=== PATIENT | female | born 1965 | race Caucasian/White ===

== ENCOUNTER 2020-08-28 14:28 | Outpatient (REF) | payer OTHER, SELFPAY ==
--- NOTE | ~2020-08-28 | MM_ITS ---
EXAMINATION: MM SCREENING DIGITAL BREAST TOMOSYNTHESIS, BILATERAL CLINICAL INFORMATION: Screening. Asymptomatic. Benign left stereotactic biopsy 12/20/2017 (benign breast tissue with stromal fibrosis, sclerosing adenosis, columnar cell change, fibrocystic changes and microcalcifications). The lifetime risk of breast cancer based on the Tyrer-Cuzick Model is 6%. COMPARISON: Mammography: 06/20/2018, 12/20/2017, 12/06/2017, 11/15/2017 TECHNIQUE: Digital breast tomosynthesis is performed in both the craniocaudal and mediolateral oblique views along with computer-aided detection (CAD). Synthesized 2D images are generated from the tomosynthesis. FINDINGS: There are scattered areas of fibroglandular density (ACR BI-RADS breast composition Category b). Parenchymal pattern is similar to prior studies. There is no developing density or interval mass or architectural abnormality. There is biopsy clip marker anterior 12:00 left breast. Scattered calcifications are again seen including probable vascular calcifications inferior medial left breast. There are no significant changes from prior studies. MM/MM tomosynthesis screening BI IMPRESSION: No mammographic evidence of malignancy. ASSESSMENT: BI-RADS 2: Benign RECOMMENDATION: Routine annual mammography screening. This patient's information was entered into a reminder system with a target due date for their next mammogram.
== END 2020-08-28 14:29 | disposition home or self-care (01) ==
LOC: HO.MAMMO 14:28
PROVIDERS: PCP Internal Medicine; Visit Provider Family Medicine
DX: Z12.31 Encounter for screening mammogram for malignant neoplasm of breast (principal)
CPT/HCPCS: 77063; 77067

== ENCOUNTER 2021-07-18 08:36 | Day surgery (SDC) | payer OTHER, SELFPAY ==
[2021-06-16 10:40] VITALS: BMI 30.9
--- NOTE | 2021-07-17 12:57 | HO.ANESPROP2 ---
Documented by User: Meena Isaac NP 07/17/21 12:58 HPI - Anesthesia Eval Consult details Narrative: 56yo F for Upper Endoscopy and Colonoscopy PMFSH Active Problems Active Problems: All Active Problems (Updated 06/16/21 @ 10:38 by Mirlande Bradley RN) Decreased hearing of left ear (Acute) Low grade fever (Acute) Otalgia of left ear (Acute) Cough headache syndrome (Acute) Past Medical History Medical History (Updated 06/16/21 @ 10:38 by Mirlande Bradley RN) Cough headache syndrome Decreased hearing of left ear GERD (gastroesophageal reflux disease) Low grade fever Mild carpal tunnel syndrome Otalgia of left ear PTSD (post-traumatic stress disorder) Small fiber neuropathy Family History Family History Father Cancer Mother Hypertension Diabetes mellitus CAD (coronary artery disease) PAD (peripheral artery disease) Sister Diabetes mellitus PAD (peripheral artery disease) Surgical History Surgical History (Updated 06/16/21 @ 10:39 by Mirlande Bradley RN) History of appendectomy History of bunionectomy of both great toes History of myringotomy History of tubal ligation Hx of colonoscopy Social History Social History Alcohol intake: never Patient Tobacco Use Status: Former Tobacco user Quit Date: >5 yr ago Tobacco use type: Cigarette Advance Directives: No (unknown) Advance Directives Information Provided: Yes Advance Directives on File: No Meds Allergies Allergy/AdvReac Type Severity Reaction Status Date / Time No Known Allergies Allergy Unverified 02/22/20 18:08 Home Medications Medication Instructions Recorded Confirmed Last Taken Type flu vacc [id number] 6mos up(PF) ml IM 06/11/20 06/11/20 Unknown History gabapentin 800 mg tablet 800 mg PO DAILY 06/16/21 06/16/21 Unknown History Exam Exam Date and Time: July 17, 2021 1257 Height,Weight and Vital Signs: Height 5 ft 5 in Weight 84.368 kg Assessment and Plan Assessment Anesthesia Assessment: Chart Reviewed Documented by User: Valdo Bowerqas 07/18/21 09:30 HPI - Anesthesia Eval Consult details Narrative: 56yo F for Upper Endoscopy and Colonoscopy former smoker neuropathy PMFSH Past Medical History Medical History (Updated 06/16/21 @ 10:38 by Mirlande Bradley RN) Cough headache syndrome Decreased hearing of left ear GERD (gastroesophageal reflux disease) Low grade fever Mild carpal tunnel syndrome Otalgia of left ear PTSD (post-traumatic stress disorder) Small fiber neuropathy Family History Family History Father Cancer Mother Hypertension Diabetes mellitus CAD (coronary artery disease) PAD (peripheral artery disease) Sister Diabetes mellitus PAD (peripheral artery disease) Family history of problems with anesthesia: No Surgical History Surgical History (Updated 06/16/21 @ 10:39 by Mirlande Bradley RN) History of appendectomy History of bunionectomy of both great toes History of myringotomy History of tubal ligation Hx of colonoscopy History of Problems with Anesthesia: No Social History Social History Alcohol intake: never Patient Tobacco Use Status: Former Tobacco user Quit Date: >5 yr ago Tobacco use type: Cigarette Advance Directives: No (unknown) Advance Directives Information Provided: Yes Advance Directives on File: No Meds Allergies Allergy/AdvReac Type Severity Reaction Status Date / Time No Known Allergies Allergy Unverified 02/22/20 18:08 Home Medications Medication Instructions Recorded Confirmed Last Taken Type flu vacc [id number] 6mos up(PF) ml IM 06/11/20 06/11/20 Unknown History gabapentin 800 mg tablet 800 mg PO DAILY 06/16/21 06/16/21 Unknown History Exam Airway Mallampati Class: III TM Dist: >3cm Neck ROM: Full Loose/Missing/Broken Teeth: Yes (poor dentation . Patient accepts increased risk of teeth damage . ) Heart: rrr Lungs: bl breath sounds Assessment and Plan Assessment Anesthesia Assessment: Anesthesia Plan Discussed Final Anesthetic Review Family History of Problems with Anesthesia: No History of Problems with Anesthesia: No NPO: Yes ASA Class: II Final Preanesthetic Review: Meds/Allgs Chart Reviewed, Consent Obtained/Reviewed and Anes Risks/Benef Reviewed Patient Risk: High Procedure Risk: Intermediate Anesthetic Plan Anesthetic Plan: MAC: Disposition: Standard PACU
[2021-07-18 09:01] VITALS: BP 122/77; PULSE 71; RESP 16; TEMP 36.7; O2SAT 98; BMI 29.6
[2021-07-18] MEDS: Lactated Ringers 1,000 ML 100 ML IVCONT (09:03)
--- NOTE | 2021-07-18 09:22 | MHC.SHP ---
Pre-Procedural Eval Section A Date of Service: 07/18/21 Section B Chief Complaint: GERD Details of Present Illness: see h&p no changes Relevant Family History (Specify if Yes): No Relevant Social History: None Present Medications: see Short Stay Collaborative assessment Medical History: No relevant PMH Allergies: Allergies Allergy/AdvReac Type Severity Reaction Status Date / Time No Known Allergies Allergy Unverified 02/22/20 18:08 Review of Systems Sugical H&P ROS: Negative: Constitution, Cardiovascular, Respiratory, Neurological, Psychiatric, Hem-Onc, Allergic/Immunologic, Gastrointestinal, Genitourinary, Musculoskeletal, Integumentary, Endocrine and Eyes/Ears/Nose/Throat Exam Surgical H&P Exam: Normal: HEENT, Normal: Heart, Normal: Lungs, Normal: Extremities, Normal: Abdomen, Normal: Skin and Normal: Neurological Plan I have reviewed the history and physical and performed a pertinent physical examination on my patient. No changes have occurred unless specified.
[2021-07-18 09:56] VITALS: BP 108/70; PULSE 81; RESP 16; TEMP 36.6; O2SAT 99
--- NOTE | 2021-07-18 09:56 | P.BOP_ITS ---
Brief Operative Note Date of Service: 07/18/21 Pre-op diagnosis: gerd, change in bowels Post-op diagnosis: same (hiatal hernia) Procedure: egd colonoscopy Surgeon: Ten Polanco Anesthesia: MAC Was an [employer] used for this Procedure?: No Estimated blood loss (mL): 5 Pathology: other (bxs antrum,duodenum, egj, ti, sigmoid) Condition: stable Disposition: PACU
[2021-07-18 10:12] VITALS: BP 119/65; PULSE 74; RESP 16; TEMP 36.6; O2SAT 99
--- NOTE | 2021-07-18 10:28 | OP_ITS ---
SURGEON: Ten Polanco MD INDICATIONS: Gastroesophageal reflux disease and change in bowel function. PREOPERATIVE DIAGNOSIS: POSTOPERATIVE DIAGNOSIS: PROCEDURE PERFORMED: 1. Upper endoscopy with biopsy. 2. Colonoscopy to the terminal ileum with biopsy. ESTIMATED BLOOD LOSS: COMPLICATIONS: ANESTHESIA: Monitored anesthesia care. ASSISTANTS: SPECIMENS: DESCRIPTION OF PROCEDURE: A history and physical were performed. The risks and benefits of the procedure were explained to the patient and informed consent was obtained. The patient was placed in the left lateral decubitus position. The Olympus video gastroscope was introduced into the esophagus, stomach, and duodenum. Examination was performed and the scope was removed. She was repositioned for colonoscopy. A digital rectal exam was performed and was found to be normal. The Olympus pediatric video colonoscope was introduced into the rectum and advanced to the cecum without difficulty. The cecum was identified by transillumination, palpation, and identification of the ileocecal valve. Examination was performed. The scope was removed. She tolerated both procedures well and was returned to the recovery area in stable condition. FINDINGS: UPPER ENDOSCOPY Esophagus: The esophagus was normal. There was no esophagitis. There was a small sliding hiatal hernia. Biopsies were obtained from the EG junction. Stomach: The stomach was normal. Biopsies were obtained from the antrum. Duodenum. The duodenum was normal. Biopsies were obtained from the second portion. COLONOSCOPY: The terminal ileum was examined and appeared normal. This was biopsied. The visualized colonic mucosa was normal. The quality of the prep was good. No polyps were identified. There were few diverticula seen in the sigmoid. Retroflexed examination was normal. IMPRESSION: 1. Hiatal hernia. 2. Gastroesophageal reflux disease. 3. Normal colonoscopy. RECOMMENDATIONS: 1. Follow up the biopsy results. 2. Repeat colonoscopy is recommended in 10 years for average risk individuals. MD ALDO Garcia/EV / [id number]
--- NOTE | 2021-07-28 12:01 | PM.EVENT ---
Event Note Date of Service: 07/18/21 Event Note: Addendum Random sigmoid biopsies were obtained during colonoscopy.
== END 2021-07-18 10:15 | disposition home or self-care (01) ==
PROVIDERS: PCP Nurse Practitioner Gerontology; Visit Provider Internal Medicine Gastroenterology
PROC: (CPT 45380; principal; 2021-07-18 09:50)
DX: R19.4 Change in bowel habit (principal); K21.9 Gastro-esophageal reflux disease without esophagitis; K44.9 Diaphragmatic hernia without obstruction or gangrene; G90.09 Other idiopathic peripheral autonomic neuropathy; F43.10 Post-traumatic stress disorder, unspecified; Z79.899 Other long term (current) drug therapy; Z87.891 Personal history of nicotine dependence
CPT/HCPCS: 45380; 43239; 88305; 88342

== ENCOUNTER 2021-09-01 15:47 | Outpatient (REF) | payer OTHER, SELFPAY ==
--- NOTE | ~2021-09-01 | MM_ITS ---
EXAMINATION: MM SCREENING DIGITAL BREAST TOMOSYNTHESIS, BILATERAL CLINICAL INFORMATION: Screening. Asymptomatic. The lifetime risk of breast cancer based on the Tyrer-Cuzick Model is 6%. COMPARISON: Mammography: 08/28/2020, 06/20/2018, 12/20/2017, 12/06/2017, 11/15/2017 TECHNIQUE: Digital breast tomosynthesis is performed in both the craniocaudal and mediolateral oblique views along with computer-aided detection (CAD). Synthesized 2D images are generated from the tomosynthesis. FINDINGS: There are scattered areas of fibroglandular density (ACR BI-RADS breast composition Category b). Left breast has biopsy clip marker 12:00 position. No recurrent calcifications. There are some vascular calcifications mid medial left breast along with digital processing artifact on synthesized CC view. Neither breast shows developing density or interval mass or architectural abnormality. There are no abnormal calcifications. The axilla and skin contours are unremarkable. No significant changes. MM/MM tomosynthesis screening BI IMPRESSION: No mammographic evidence of malignancy. ASSESSMENT: BI-RADS 2: Benign RECOMMENDATION: Routine annual mammography screening. This patient's information was entered into a reminder system with a target due date for their next mammogram.
== END 2021-09-01 15:48 | disposition home or self-care (01) ==
LOC: HO.MAMMO 15:47
PROVIDERS: Visit Provider Family Medicine
DX: Z12.31 Encounter for screening mammogram for malignant neoplasm of breast (principal)
CPT/HCPCS: 77063; 77067

== ENCOUNTER 2022-10-19 07:41 | Outpatient (REF) | payer OTHER, SELFPAY ==
--- NOTE | ~2022-10-19 | MM_ITS ---
EXAMINATION: MM SCREENING DIGITAL BREAST TOMOSYNTHESIS, BILATERAL CLINICAL INFORMATION: Screening. Asymptomatic. Benign left stereotactic biopsy 12/20/2017 (stromal fibrosis, sclerosing adenosis, columnar cell change, fibrocystic changes and microcalcifications). The lifetime risk of breast cancer based on the Tyrer-Cuzick Model is 11%. COMPARISON: Mammography: 09/01/2021, 08/28/2020, 06/20/2018, 12/20/2017, 12/06/2017 TECHNIQUE: Digital breast tomosynthesis is performed in both the craniocaudal and mediolateral oblique views along with computer-aided detection (CAD). Synthesized 2D images are generated from the tomosynthesis. FINDINGS: There are scattered areas of fibroglandular density (ACR BI-RADS breast composition Category b). Parenchymal pattern is similar to prior studies and there is no developing density, significant mass, or architectural abnormality. No abnormal calcifications right breast. Bilateral axilla and skin contours are unremarkable. Left breast has biopsy clip marker anterior upper breast. There are loosely grouped calcifications mid 8:00 left breast questionably increased on 2-D synthesized images. MM/MM tomosynthesis screening BI IMPRESSION: Left: -Loosely grouped calcifications mid 8:00 questionably increased on the synthesized images. Right: -No mammographic evidence of malignancy. ASSESSMENT: BI-RADS 0: Incomplete - Need Additional Imaging Evaluation RECOMMENDATION: 1. Additional views left breast (magnification CC, magnification LM). 2. Targeted ultrasound if warranted after review of the additional views. 3. Radiology department staff will contact the patient for additional imaging. This patient's information was entered into a reminder system with a target due date for their next mammogram.
== END 2022-10-19 07:42 | disposition home or self-care (01) ==
LOC: HO.MAMMO 07:41
PROVIDERS: PCP Nurse Practitioner Gerontology; Visit Provider Nurse Practitioner Gerontology
DX: Z12.31 Encounter for screening mammogram for malignant neoplasm of breast (principal)
CPT/HCPCS: 77063; 77067

== ENCOUNTER 2022-10-27 14:16 | Outpatient (REF) | payer OTHER, SELFPAY ==
--- NOTE | ~2022-10-27 | MM_ITS ---
EXAMINATION: MM DIAGNOSTIC DIGITAL MAMMOGRAPHY, LEFT CLINICAL INFORMATION: Recall from screening for question of increased calcifications mid 8:00 left breast. COMPARISON: Prior mammography exams including most recent 10/19/2022 and diagnostic mammography with magnification views 12/06/2017. TECHNIQUE: Digital mammography is performed in the following views: Magnification CC, magnification LM. FINDINGS: There are scattered areas of fibroglandular density (ACR BI-RADS breast composition Category b). The additional views show a few calcifications in the area for recall similar to decreased when compared with prior magnification views in 2018. There are no increasing calcifications. Results are discussed with the patient at time of visit. MM/MM added views LT IMPRESSION: No significant changes left breast calcifications when compared with prior magnification views 2018. ASSESSMENT: BI-RADS 2: Benign RECOMMENDATION: Routine annual mammography screening. This patient's information was entered into a reminder system with a target due date for their next mammogram.
== END 2022-10-27 14:17 | disposition home or self-care (01) ==
LOC: HO.MAMMO 14:16
PROVIDERS: PCP Nurse Practitioner Gerontology; Visit Provider Nurse Practitioner Gerontology
DX: R92.1 Mammographic calcification found on diagnostic imaging of breast (principal)
CPT/HCPCS: 77065

== ENCOUNTER 2022-11-01 20:21 | Emergency (ER) | payer OTHER, SELFPAY ==
[2022-11-01 20:32] VITALS: BP 105/70; PULSE 87; RESP 18; TEMP 36.7; O2SAT 97; BMI 31.1
--- NOTE | 2022-11-01 21:54 | ED.EXTPRO ---
HPI - Extremity Problem General Chief complaint: Extremity Injury, Upper Stated complaint: Right hand pain/swollen Time Seen by Provider: 11/01/22 21:46 Source: patient, RN notes reviewed and old records reviewed Mode of arrival: ambulatory Limitations: no limitations History of Present Illness HPI Narrative: 57-year-old female presents for evaluation of redness to the right thumb. Patient reports that she was gardening on . She felt a thorn poke her in the right thumb. She did not see any swelling sticking out until the next day and she removed this She has mild redness extending proximally up to about just before her wrist Denies any fevers or chills She is not a diabetic Related Data Home Medications Medication Instructions Recorded Confirmed flu vacc [id number] 6mos up(PF) 60 ml IM 06/11/20 06/11/20 mcg(15 mcgx4)/0.5 mL IM syringe gabapentin 800 mg tablet 800 mg PO DAILY 06/16/21 06/16/21 Previous Rx's Medication Instructions Recorded azithromycin 250 mg tablet See Rx Instructions PO .COMPLEX 5 06/11/20 days #6 tabs cephalexin 500 mg capsule 500 mg PO QID #20 caps 11/01/22 Allergies Allergy/AdvReac Type Severity Reaction Status Date / Time No Known Allergies Allergy Unverified 02/22/20 18:08 Review of Systems Constitutional: Constitutional: Denies chills and Denies fever(s) Musculoskeletal: Musculoskeletal: Denies limited range of motion Integumentary/Breasts: Skin/Breast: Reports rash PMFSH Past Medical History Medical History (Updated 11/01/22 @ 21:58 by Kaz Gould) Cough headache syndrome Decreased hearing of left ear GERD (gastroesophageal reflux disease) Low grade fever Mild carpal tunnel syndrome Otalgia of left ear PTSD (post-traumatic stress disorder) Small fiber neuropathy Surgical History (Updated 06/16/21 @ 10:39 by Mirlande Bradley RN) History of appendectomy History of bunionectomy of both great toes History of myringotomy History of tubal ligation Hx of colonoscopy Family History Family History Father Cancer Mother Hypertension Diabetes mellitus CAD (coronary artery disease) PAD (peripheral artery disease) Sister Diabetes mellitus PAD (peripheral artery disease) Social History Social History Alcohol intake: never Patient Tobacco Use Status: Former Tobacco user Quit Date: >5 yr ago Tobacco use type: Cigarette Advance Directives: No Advance Directives Information Provided: No Physical Exam Vital Signs: Vital Signs: Last Vital Signs Temp 98.1 F 11/01/22 20:32 Pulse 87 11/01/22 20:32 Resp 18 11/01/22 20:32 BP 105/70 11/01/22 20:32 Pulse Ox 97 11/01/22 20:32 O2 Del Method Room Air 11/01/22 20:32 BMI result Body Mass Index 31.1 Const: General: healthy appearing, comfortable, no acute distress, alert and awake Nutritional Appearance: well nourished Orientation/consciousness: patient oriented x3 Resp: Effort & Inspection: normal respiratory effort, able to speak in complete sentences and not labored Skin: Other: There is a small puncture wound evident on the dorsal surface of the right hand just prior to the 1st MCP joint. There is approximately 4 cm surrounding erythema extending proximally. This was traced with a marker pen there is no significant edema, fluctuance or induration. General skin exam: elasticity normal Neuro: General: patient oriented x3 Cranial nerves: Yes CN's II-XII intact bilaterally and Yes Bilaterally intact EOM present Cognition (Neuro): normal cognition Extrem: Other: Full range of motion to all fingers of the right hand, as well as the wrist. Negative Anyi test Medical Decision Making Medical Decision Making MDM Narrative: Patient has evidence of mild cellulitis to the back of the right thumb. Will treat with cephalexin. She is not diabetic, does not any fevers or chills. She is given a dose in the ER and her prescription was sent to her pharmacy Differential Diagnosis Cellulitis Abscess Puncture wound Tenosynovitis Carpal tunnel syndrome Gout Discharge Plan Discharge Clinical Impression: Cellulitis of right hand Patient Disposition: Home, Self-Care Instructions: Cellulitis (ED) Additional Instructions: Take cephalexin 4 times daily for the next 5 days Apply warm compresses to the swollen area for the next few days Use ibuprofen or Tylenol for pain Return for new or worsening symptoms, especially if he develops fevers or if the redness is extending well beyond the marked areas Prescriptions: New cephalexin 500 mg capsule 500 mg PO QID Qty: 20 0RF No Action gabapentin 800 mg Tablet 800 mg PO DAILY azithromycin 250 mg tablet See Rx Instructions PO .COMPLEX 5 Days Qty: 6 0RF Rx Instructions: take 500 mg today (day 1), then 250 mg for 4 days (days 2-5) PO flu vacc [id number] 6mos up(PF) 60 mcg (15 mcg x 4)/0.5 mL syringe IM
[2022-11-01] MEDS: cephALEXin 500 MG CAPSULE PO (22:08)
== END 2022-11-01 22:10 | disposition home or self-care (01) ==
PROVIDERS: Emergency Provider Emergency Medicine
DX: L03.113 Cellulitis of right upper limb (principal); Z87.891 Personal history of nicotine dependence; Z79.899 Other long term (current) drug therapy
CPT/HCPCS: 99282

== ENCOUNTER 2023-03-03 13:06 | Outpatient (REF) | payer OTHER, SELFPAY ==
--- NOTE | ~2023-03-03 | MR_ITS ---
EXAMINATION: MR HIP WITH CONTRAST, LEFT CLINICAL INFORMATION: Left hip pain, evaluate labral tear. COMPARISON: None available. TECHNIQUE: MRI of the left hip was performed after the intra-articular administration of a dilute gadolinium-containing solution on a high-field scanner. FINDINGS: BONE/JOINTS: Anatomic left hip joint alignment. There appears to be superior/lateral joint space narrowing, areas of cartilage thinning and heterogeneity. Findings correlate with mild osteoarthritis. No evidence of acute fracture, avascular necrosis or stress reaction. No evidence of bony hypertrophy or subcortical cyst/edema in the anterior femoral head and neck junction. Alpha angle measures 49 degrees. (Measured at the anterior 3:00 position on the oblique sagittal sequence). Acetabular depth is within normal limits. LABRUM: There is T2 bright signal/contrast extending into the base of the anterosuperior labrum, compatible with a labral tear. MUSCLES/TENDONS: Mild distal gluteus minimus tendinosis. Mild tendinosis of the anterior fibers of the distal gluteus medius. Common hamstring, iliopsoas tendons intact. No muscle tear. JOINTS/BURSA: Arthrogram fluid within the hip joint. No significant synovitis or definitive loose bodies identified. No significant greater trochanteric or iliopsoas bursitis. MISCELLANEOUS: Subcentimeter left groin lymph nodes. Urinary bladder is nondistended limiting evaluation. No free fluid in the pelvis.. MR/MR hip LT w con IMPRESSION: 1. Mild left hip arthritis. Correlate with x-ray. 2. Abnormal findings suspicious for an anterosuperior labral tear. 3. Mild tendinosis of the distal gluteus minimus and the anterior fibers gluteus medius. 4. Additional findings and details as above.
--- NOTE | ~2023-03-03 | FL_ITS ---
PROCEDURE: XR ARTHROGRAM HIP, LEFT CLINICAL INFORMATION: Left hip consistent pain with degeneration. Question labral tear. COMPARISON: None available. TECHNIQUE: Following explaining left shoulder arthrogram under fluoroscopy procedure, benefits and risk a written consent was obtained. Patient was placed supine on fluoroscopy table and marker was placed along the anterior aspect of left hip joint. The marked area was cleaned and draped in the usual sterile manner. 1% lidocaine was inserted at puncture site. A 22-gauge spinal needle was then advanced from the skin to the lateral border of the left femoral neck and 2 mm nonionic contrast was injected. After confirming contrast in the joint space 0.1 mL of gadolinium diluted with 5 mm 1% lidocaine and approximately 10 mL of saline as a combination was injected and needle withdrawn. Complete hemostasis achieved at puncture site. Patient tolerated procedure extremely well. Patient was sent to MRI for further imaging. FINDINGS: On preliminary left hip imaging the left hip joint space is maintained. No bony erosive changes. No loose bodies. There is nonionic contrast opacifying the left hip joint space. FLUOROSCOPY TIME: 27 seconds DOSE AREA PRODUCT: 596.1 uGy-m2 (microgray-meter squared) FL/FL arthrogram hip LT IMPRESSION: Successful fluoroscopy-guided left hip diluted gadolinium injection. Patient was sent to MRI for further imaging.
[2023-03-03] MEDS: gadobutroL 2 ML VIAL IVPUSH (14:36)
== END 2023-03-03 13:07 | disposition home or self-care (01) ==
LOC: HO.XRAY 13:06
PROVIDERS: PCP Nurse Practitioner Family; Visit Provider Physician Assistant
DX: M25.552 Pain in left hip (principal)
CPT/HCPCS: 27093; 73525; 73722; A9585

== ENCOUNTER → 2023-03-03 13:09 | Outpatient (BNV) | payer OTHER, SELFPAY | PROVIDERS: PCP Nurse Practitioner Family; Visit Provider Radiology Diagnostic Radiology | DX: M25.552 Pain in left hip (principal) | CPT/HCPCS: 27093; 73525 ==

== ENCOUNTER 2023-07-02 09:34 | Day surgery (SDC) | payer OTHER, SELFPAY ==
[2023-06-30 13:00] VITALS: BMI 29.0
--- NOTE | 2023-07-01 10:33 | P.CONAN_ITS ---
Documented by User: Meena Isaac NP 07/01/23 10:33 HPI - Anesthesia Eval Consult details Narrative: 58yo F for Upper Endoscopy PMFSH Active Problems Active Problems: All Active Problems (Updated 06/30/23 @ 12:56 by Mirlande Bradley RN) Decreased hearing of left ear (Acute) Low grade fever (Acute) Otalgia of left ear (Acute) Cough headache syndrome (Acute) Past Medical History Medical History Mckeon's esophagus PTSD (post-traumatic stress disorder) GERD (gastroesophageal reflux disease) Mild carpal tunnel syndrome Small fiber neuropathy Decreased hearing of left ear Low grade fever Otalgia of left ear Cough headache syndrome Family History Family History Father Cancer Mother Hypertension Diabetes mellitus CAD (coronary artery disease) PAD (peripheral artery disease) Sister Diabetes mellitus PAD (peripheral artery disease) Family history of problems with anesthesia: No Surgical History Surgical History History of esophagogastroduodenoscopy (EGD) History of myringotomy History of bunionectomy of both great toes History of appendectomy History of tubal ligation Hx of colonoscopy History of Problems with Anesthesia: No Social History Social History Alcohol intake: never Patient Tobacco Use Status: Former Tobacco user Quit Date: >5 yr ago Tobacco use type: Cigarette Are you DNR?: No Advance Directives: No Advance Directives Information Provided: Yes Nutrition Risks: No Nutritional Risk Meds Allergies Allergy/AdvReac Type Severity Reaction Status Date / Time No Known Allergies Allergy Verified 07/02/23 09:59 Home Medications Medication Instructions Recorded Confirmed Last Taken Type cetirizine 10 mg tablet 10 mg PO DAILY 06/30/23 06/30/23 Unknown History gabapentin 100 mg capsule 200 mg PO BEDTIME 06/30/23 06/30/23 Unknown History gabapentin 600 mg tablet 600 mg PO QAM 06/30/23 06/30/23 Unknown History lidocaine 5 % topical patch 1 patch topical DAILY 06/30/23 06/30/23 Unknown History (Lidoderm) omeprazole 20 mg capsule,delayed 20 mg PO DAILY 06/30/23 06/30/23 Unknown History release Exam Height,Weight and Vital Signs: Height 5 ft 5 in Weight 78.925 kg Assessment and Plan Assessment Anesthesia Assessment: Chart Reviewed Final Anesthetic Review Family History of Problems with Anesthesia: No History of Problems with Anesthesia: No Documented by User: Marybeth Doran MD 07/02/23 10:10 [facility] Past Medical History Medical History Mckeon's esophagus PTSD (post-traumatic stress disorder) GERD (gastroesophageal reflux disease) Mild carpal tunnel syndrome Small fiber neuropathy Decreased hearing of left ear Low grade fever Otalgia of left ear Cough headache syndrome Family History Family History Father Cancer Mother Hypertension Diabetes mellitus CAD (coronary artery disease) PAD (peripheral artery disease) Sister Diabetes mellitus PAD (peripheral artery disease) Surgical History Surgical History History of esophagogastroduodenoscopy (EGD) History of myringotomy History of bunionectomy of both great toes History of appendectomy History of tubal ligation Hx of colonoscopy Social History Social History Alcohol intake: never Patient Tobacco Use Status: Former Tobacco user Quit Date: >5 yr ago Tobacco use type: Cigarette Are you DNR?: No Advance Directives: No Advance Directives Information Provided: Yes Nutrition Risks: No Nutritional Risk Meds Allergies Allergy/AdvReac Type Severity Reaction Status Date / Time No Known Allergies Allergy Verified 07/02/23 09:59 Home Medications Medication Instructions Recorded Confirmed Last Taken Type cetirizine 10 mg tablet 10 mg PO DAILY 06/30/23 06/30/23 Unknown History gabapentin 100 mg capsule 200 mg PO BEDTIME 06/30/23 06/30/23 Unknown History gabapentin 600 mg tablet 600 mg PO QAM 06/30/23 06/30/23 Unknown History lidocaine 5 % topical patch 1 patch topical DAILY 06/30/23 06/30/23 Unknown History (Lidoderm) omeprazole 20 mg capsule,delayed 20 mg PO DAILY 06/30/23 06/30/23 Unknown History release Exam Airway Mallampati Class: IV TM Dist: >3cm Neck ROM: Full Loose/Missing/Broken Teeth: Yes and Lower Heart: RRR Lungs: CTA Assessment and Plan Assessment Anesthesia Assessment: Anesthesia Plan Discussed Final Anesthetic Review NPO: Yes ASA Class: II Final Preanesthetic Review: Meds/Allgs Chart Reviewed, Consent Obtained/Reviewed and Anes Risks/Benef Reviewed Patient Risk: Low Procedure Risk: Intermediate Anesthetic Plan Anesthetic Plan: MAC: Disposition: Standard PACU
[2023-07-02 09:45] VITALS: BMI 30.1
[2023-07-02] MEDS: Lactated Ringers 1,000 ML 100 ML IVCONT (09:51)
[2023-07-02 09:57] VITALS: BP 130/80; PULSE 75; RESP 18; TEMP 36.6; O2SAT 96; BMI 30.1
--- NOTE | 2023-07-02 10:30 | MHC.SHP ---
Pre-Procedural Eval Section A Date of Service: 07/02/23 The patient is an INPATIENT: No Changes since office visit: No Cold of Flu in the past 2 weeks, No New Medical Problems, No Changes in Medication and No Patient answered all questions The History & Physical has been completed within 30 days and I have reviewed it.: Yes Section B Chief Complaint: Mckeon's esophagus without dysplasia Allergies: Allergies Allergy/AdvReac Type Severity Reaction Status Date / Time No Known Allergies Allergy Verified 07/02/23 09:59 Plan I have reviewed the history and physical and performed a pertinent physical examination on my patient. No changes have occurred unless specified. Time Spent With Patient Time: Total time managing care of this patient today ____ minutes.
[2023-07-02 10:56] VITALS: BP 120/70; PULSE 82; RESP 16; TEMP 36.4; O2SAT 94
[2023-07-02 11:11] VITALS: BP 136/85; PULSE 84; RESP 16; TEMP 36.3; O2SAT 96
--- NOTE | 2023-07-02 11:32 | OP_ITS ---
DATE OF SERVICE: 07/02/2023 SURGEON: Ten Polanco MD INDICATIONS: Mckeon's esophagus. PREOPERATIVE DIAGNOSIS: POSTOPERATIVE DIAGNOSIS: PROCEDURE PERFORMED: Upper endoscopy with biopsy. ESTIMATED BLOOD LOSS: COMPLICATIONS: ANESTHESIA: Monitored anesthesia care. ASSISTANTS: SPECIMENS: DESCRIPTION OF PROCEDURE: History and physical was performed. The risks and benefits of the procedure were explained to the patient and informed consent was obtained. The patient was placed in the left lateral decubitus position. The Olympus video gastroscope was introduced into the esophagus, stomach, and duodenum. Examination was performed. The scope was removed. She tolerated the procedure well and was returned to the recovery room in stable condition. FINDINGS: Esophagus: The esophagus showed a 1 cm area of Mckeon esophagus without ulceration or bleeding. Biopsies were obtained from the mucosa. Stomach: The stomach showed no evidence of masses, ulcers, or polyps. Duodenum: The bulb and second portion were normal. IMPRESSION: Mckeon esophagus. RECOMMENDATIONS: Follow up the biopsy results. MD ALDO Garcia/MODL / [id number]
== END 2023-07-02 11:35 | disposition home or self-care (01) ==
PROVIDERS: PCP Nurse Practitioner Family; Visit Provider Internal Medicine Gastroenterology
PROC: 0DJ08ZZ Inspection of Upper Intestinal Tract, Via Natural or Artificial Opening Endoscopic (ICD-10-PCS; CPT 43235; principal; 2023-07-02 11:40)
DX: K22.70 Barrett's esophagus without dysplasia (principal); Z87.891 Personal history of nicotine dependence
CPT/HCPCS: 43239; 88305; 88313; J2250; J2704

== ENCOUNTER 2023-10-07 15:12 | Emergency (ER) | payer OTHER, SELFPAY ==
--- NOTE | ~2023-10-07 | XR_ITS ---
EXAMINATION: XR ANKLE, RIGHT CLINICAL INFORMATION: History of fall from 3 feet. Pain. COMPARISON: None available. TECHNIQUE: AP, lateral, and mortise views of the right ankle. FINDINGS: The talar dome is well-positioned within the ankle mortise. No fracture, subluxation or ankle joint effusion. A well-corticated ossicle projects distal to the fibula. XR/XR ankle RT 2V IMPRESSION: No acute findings. No evidence of fracture or malalignment at the right ankle.
--- NOTE | ~2023-10-07 | XR_ITS ---
EXAMINATION: XR WRIST, RIGHT CLINICAL INFORMATION: History of fall onto outstretched arm. Pain. COMPARISON: None available. TECHNIQUE: PA, lateral, and oblique views of the right wrist. FINDINGS: Bones have normal alignment at the right wrist. The joint spaces are normal. No evidence of carpal bone fracture or subluxation. There is no visible fracture lucency in the distal radius or ulna, and the distal radioulnar joint is normal. No focal soft tissue swelling. The pronator quadratus fat stripe is maintained. XR/XR wrist RT 2V IMPRESSION: Bones have normal alignment at the right wrist. No radiographic evidence of osseous injury.
[2023-10-07 15:40] VITALS: BP 126/69; PULSE 80; RESP 18; TEMP 36.6; O2SAT 97; BMI 30.8
--- NOTE | 2023-10-07 15:40 | ED.EXTPRO ---
HPI - Extremity Problem General Chief complaint: Fall Stated complaint: fell right wrist inj Time Seen by Provider: 10/07/23 16:10 Source: patient and family Mode of arrival: ambulatory Limitations: no limitations History of Present Illness HPI Narrative: 58-year-old female with no significant past medical history presents emergency department, with the daughter, after sustaining a mechanical fall. She reports she was standing on top of a picnic table bring up a screen when she fell onto the deck. She reports she fell roughly 3 ft landing on her outstretched hands and right ankle. She reports pain in the right wrist and ankle which is exacerbated by movement. She denies any paresthesias, erythema, ecchymosis, or significant swelling. She reports decrease in range of motion secondary to pain. Pertinent positives and negatives discussed in HPI Related Data Home Medications ?Medication ?Instructions ?Recorded ?Confirmed cetirizine 10 mg tablet 10 mg PO DAILY 06/30/23 06/30/23 gabapentin 100 mg capsule 200 mg PO BEDTIME 06/30/23 06/30/23 gabapentin 600 mg tablet 600 mg PO QAM 06/30/23 06/30/23 lidocaine 5 % topical patch 1 patch topical DAILY 06/30/23 06/30/23 (Lidoderm) omeprazole 20 mg capsule,delayed 20 mg PO DAILY 06/30/23 06/30/23 release Allergies Allergy/AdvReac Type Severity Reaction Status Date / Time No Known Allergies Allergy Verified 10/07/23 15:45 Review of Systems Review of Systems: Yes all other systems are reviewed and are negative PMFSH Past Medical History Medical History Mckeon's esophagus PTSD (post-traumatic stress disorder) GERD (gastroesophageal reflux disease) Mild carpal tunnel syndrome Small fiber neuropathy Decreased hearing of left ear Low grade fever Otalgia of left ear Cough headache syndrome Surgical History History of esophagogastroduodenoscopy (EGD) History of myringotomy History of bunionectomy of both great toes History of appendectomy History of tubal ligation Hx of colonoscopy Family History Family History Father Cancer Mother Hypertension Diabetes mellitus CAD (coronary artery disease) PAD (peripheral artery disease) Sister Diabetes mellitus PAD (peripheral artery disease) Social History Social History Alcohol intake: never Patient Tobacco Use Status: Former Tobacco user Quit Date: >5 yr ago Tobacco use type: Cigarette Advance Directives: No Advance Directives Information Provided: No Physical Exam Vital Signs: Vital Signs: Last Vital Signs Temp 97.8 F 10/07/23 15:40 Pulse 80 10/07/23 15:40 Resp 18 10/07/23 15:40 BP 126/69 10/07/23 15:40 Pulse Ox 97 10/07/23 15:40 O2 Del Method Room Air 10/07/23 15:40 BMI result Body Mass Index 30.8 Nursing notes and vital signs reviewed. GENERAL APPEARANCE: A&0 x 4, generally well appearing, no acute distress HENMT: Normal to inspection, atraumatic, face symmetrical. Normal external ears, nose, and oropharynx clear. EYE: PERRLA, EOM intact, structures appear normal NECK: Supple without stiffness or restricted ROM. HEART: Normal rate and regular rhythm, normal S1/S2, no M/R/G LUNGS: LS CTA, moving air well. Able to speak in complete sentences. No crackles, wheezes, or rhonchi auscultated BACK: No CVAT, no obvious deformity EXTREMITIES: Tenderness to palpation at right wrist/base of thumb. Normal capillary refill. NEUROLOGICAL: Alert and oriented, moving all 4 extremities with equal strength. CN not formally tested but appearing grossly intact. Observed to ambulate with normal gait. Cognition normal SKIN: Warm and dry without any lesions, rash, or visible sores Extrem: Elbow/forearm/wrist images: 1. Tenderness 2. Tenderness Course Course Course Narrative: This is a rapid medical exam completed by [employer] MANAGER [employer]IVE [employer]: Additional HPI, ROS, PE not included below will be deferred to primary provider. Fell while trying to put up a screen. Fell roughly 2-3 feet onto the deck landing on her outstretched arms. Reports pain in the right wrist, elbow, and ankle with decreased ROM of wrist and ankle Medications Administered Discontinued Medications Generic Name Dose Route Start Last Admin Trade Name Freq PRN Reason Stop Dose Admin Ibuprofen 600 mg 10/07/23 15:45 10/07/23 15:48 Ibuprofen 600 Mg Tablet PO 10/07/23 15:46 600 mg ONCE ONE Administration Medical Decision Making Medical Decision Making MDM Narrative: Old records reviewed for previous imaging, lab studies, ECGs, and notes. Patient was assessed the emergency department with no acute distress or toxicity noted. X-ray completed showing no evidence of acute wrist fracture. Wood wrap applied for comfort patient educated to rest, ice, compress and elevate in addition [id number] pain medications. Patient is safe for discharge at this time with plan for [id number] Tylenol and/or NSAID such as ibuprofen or naproxen for fever/discomfort with dosing as per packaging. HPI, PE, diagnostics, and plan discussed with patient and family with no unanswered questions at this time. Strict return precautions given to return to the emergency department with new, worsening, or concerning emergent symptoms. Recommended to follow-up with there primary care provider in 24-48 hours for further treatment and management. Differential Diagnosis Differential Diagnoses: The differential diagnosis associated with the presentation includes But not limited to strain, sprain, fracture, dislocation, contusion Independent Interpretation I performed an independent interpretation of an: Plain X-Ray Interpretation: As negative for acute fracture Independent Historian Clinical information obtained from an independent historian. History obtained from or confirmed by: Other Daughter Discharge Plan Discharge Clinical Impression: Contusion of right wrist, Contusion of right ankle, Fall Patient Disposition: Home, Self-Care Instructions: Contusion in Adults (ED), Fall Prevention (ED) Prescriptions: No Action gabapentin 600 mg Tablet 600 mg PO QAM cetirizine 10 mg Tablet 10 mg PO DAILY lidocaine [Lidoderm] 5 % Adhesive Patch,Medicated 1 patch TOPICAL DAILY Rx Instructions: leave on most painful area for up to 12 hrs omeprazole 20 mg Capsule,Delayed Release(Dr/Ec) 20 mg PO DAILY gabapentin 100 mg Capsule 200 mg PO BEDTIME Referrals: [facility] [place] Orthopedic Surgeons [Provider Group] (As needed) Love Sharp NP [Primary Care Provider] - Discharge Date/Time: 10/07/23 17:54 Print Language: Mohawk
[2023-10-07] MEDS: Ibuprofen 600 MG TABLET PO (15:48)
--- NOTE | 2023-10-07 17:53 | PC.NURSE ---
discharged by provider
== END 2023-10-07 17:54 | disposition home or self-care (01) ==
PROVIDERS: Emergency Provider Emergency Medicine; PCP Nurse Practitioner Family
DX: S60.211A Contusion of right wrist, initial encounter (principal); S90.01XA Contusion of right ankle, initial encounter; W08.XXXA Fall from other furniture, initial encounter; Y93.9 Activity, unspecified; Y92.9 Unspecified place or not applicable; Y99.8 Other external cause status
CPT/HCPCS: 73100; 73600; 99282; 99283

== ENCOUNTER 2023-10-22 10:09 | Outpatient (REF) | payer OTHER, SELFPAY ==
--- NOTE | ~2023-10-22 | MM_ITS ---
EXAMINATION: MM SCREENING DIGITAL BREAST TOMOSYNTHESIS, BILATERAL CLINICAL INFORMATION: Screening. Asymptomatic. COMPARISON: Mammography: This study is compared with prior exams dating back to 2019. TECHNIQUE: Digital breast tomosynthesis is performed in both the craniocaudal and mediolateral oblique views along with computer-aided detection (CAD). Synthesized 2D images are generated from the tomosynthesis. FINDINGS: There are scattered areas of fibroglandular density (ACR BI-RADS breast composition Category b). There are no significant masses, abnormal calcifications, or other abnormalities. There is a biopsy tissue marker present in the superior aspect of the left breast. MM/MM tomosynthesis screening BI IMPRESSION: No mammographic evidence of malignancy. ASSESSMENT: BI-RADS BI-RADS 2 - Benign Findings RECOMMENDATION: Routine annual mammography screening. 1 year F/U This examination should not preclude the clinical evaluation of a suspicious palpable abnormality. This patient's information was entered into a reminder system with a target due date for their next mammogram.
== END 2023-10-22 10:10 | disposition home or self-care (01) ==
LOC: HO.MAMMO 10:09
PROVIDERS: PCP Nurse Practitioner Family; Visit Provider Nurse Practitioner Family
DX: Z12.31 Encounter for screening mammogram for malignant neoplasm of breast (principal)
CPT/HCPCS: 77063; 77067

== ENCOUNTER → 2023-10-22 10:15 | Outpatient (BNV) | payer OTHER, SELFPAY | PROVIDERS: PCP Nurse Practitioner Family; Visit Provider Radiology Diagnostic Radiology | DX: Z12.31 Encounter for screening mammogram for malignant neoplasm of breast (principal) | CPT/HCPCS: 77063; 77067 ==

== ENCOUNTER 2024-11-08 14:41 | Outpatient (REF) | payer OTHER, SELFPAY ==
--- OUTSIDE RECORDS SUMMARY | 2024-11-08 14:43 | XMS_ITS | Encounter Summary ---
Author Organization [facility] Address [address] [place] [address] Care Team Providers Care Plumbing Assembler Name Role Phone Naheed Cross MD Primary Care Provider Reason for Visit * Reason Comments Unable To Schedule us order placed toda y has high deductible pt cannot pay Encounter Details Date Type Department Care Team ([facility] st Contact Info) Description 03/10/2017 Telephone [facility] Ultrasound [address] [place] [address] Osmani Cruz MD [address] [place] [address] Unable To Schedule (us order placed today has high deductible pt cannot pay) Social History Tobacco Use Types Packs/Day Years Used Date Smoking Tobacco: Every Day Smokeless Tobacco: Never Alcohol Use Standard Drinks/Week Comments Not Asked 0 (1 standard drink = 0.6 oz pur e alcohol) Comments No Sex and Gender Information Value Date Recorded Sex Assigned at Not on file Legal Sex Female 5:45 PM EDT Gender Identity Not on file Sexual Orientation Not on file documented as of this encounter Miscellaneous Notes * Telephone Encounter - Osmani Cruz MD - 03/10/2017 4:59 PM EDT Ultrasound due to family history of ovarian cancer, declined is understandable. * Telephone Encounter - Sudarshan June - 03/10/2017 3:50 PM EDT Good afternoon, This message is for the office of Dr Osmani Cruz, regarding patient Luz Guerrier, , I called her today to schedule the us pelvic transabd/vaginal, you placed today, but since her BCBS is showing a deductible amount of $312.67 she declined. I told her I would let the office know maybe the exam can be done for dpartment use type ultra sound that might not touch her deductible Thank you [facility] [phone] documented in this encounter Plan of Treatment Not on file documented as of this encounter Visit Diagnoses Not on filedocumented in this encounter Care Teams Plumbing Assembler Relationship Specialty Start Date End Date Naheed Cross MD Robert Applebaum MD [address] [place] [id number] PCP - General 06/07/03 documented as of this encounter
== END 2024-11-08 14:42 | disposition home or self-care (01) ==
LOC: HO.MAMMO 14:41
PROVIDERS: PCP Nurse Practitioner Family; Visit Provider Nurse Practitioner Family
DX: Z12.31 Encounter for screening mammogram for malignant neoplasm of breast (principal)
CPT/HCPCS: 77063; 77067

== ENCOUNTER → 2024-11-08 15:00 | Outpatient (BNV) | payer OTHER, SELFPAY | PROVIDERS: PCP Nurse Practitioner Family; Visit Provider Internal Medicine | DX: Z12.31 Encounter for screening mammogram for malignant neoplasm of breast (principal) | CPT/HCPCS: 77063; 77067 ==

== ENCOUNTER 2024-11-09 12:13 | Outpatient (REF) | payer OTHER, SELFPAY ==
--- NOTE | ~2024-11-09 | XR_ITS ---
EXAMINATION: XR HIP, LEFT CLINICAL INFORMATION: M25.552 - Pain in left hip COMPARISON: None available. TECHNIQUE: AP pelvis, and 2 views of the left hip. FINDINGS: No fracture. Alignment is anatomic. Hip joint space is maintained. Normal acetabular coverage. Femoral head is normal in contour. No evidence of AVN. Soft tissues are unremarkable. XR/XR hip LT min 2V IMPRESSION: Normal pelvis and left hip. Electronically signed by: Behzad Wolff MD 11/09/2024 02:34 PM EDT
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
== END 2024-11-09 12:14 | disposition home or self-care (01) ==
LOC: HO.HOSX 12:13
PROVIDERS: Visit Provider Physician Assistant
DX: M16.12 Unilateral primary osteoarthritis, left hip (principal); M25.552 Pain in left hip
CPT/HCPCS: 73502; 99202

== ENCOUNTER 2024-11-09 12:46 | Outpatient (AMB) | payer OTHER, SELFPAY ==
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
[2024-11-09 13:09] VITALS: BMI 28.6
== END 2024-11-09 14:03 | disposition home or self-care (01) ==
LOC: HO.HOS 12:47
PROVIDERS: PCP Nurse Practitioner Family; Visit Provider Physician Assistant
DX: M16.12 Unilateral primary osteoarthritis, left hip (principal)
CPT/HCPCS: 99203; G2211

== ENCOUNTER → 2024-11-09 12:51 | Outpatient (BNV) | payer OTHER, SELFPAY | PROVIDERS: Visit Provider Radiology Diagnostic Radiology | DX: M25.552 Pain in left hip (principal) | CPT/HCPCS: 73502 ==

== ENCOUNTER 2024-12-29 10:55 | Outpatient (REF) | payer OTHER, SELFPAY ==
--- OUTSIDE RECORDS SUMMARY | 2023-07-02 07:40 | XMS_ITS ---
Author Organization [facility] Address [address] [place] [address] [place] [id number] Care Team Providers Care Cathode Washer Name Role Phone Love Sharp N.P Primary Care Provider Ten Plata Jr Unavailable REASON FOR VISIT medina's Problems Problem Type SNOMED Code ICD Code Onset Dates Problem Status W/U Status Risk Notes Problem Medina esophagus (104170487) Medina esophagus (K22.70) Active confirmed Encounters Encounter Location Date Provider Diagnosis [facility] [address] [place] [phone] 07/02/2023 Ten Polanco Jr Medina esophagus K22.70 Assessments Encounter Date Diagnosis (ICD Code) Assessment Notes Treatment Notes Treatment Clinical Notes Section Notes 07/02/2023 Medina esophagus (ICD-10 - K22.70) Plan Of Treatment Next Appt Details Provider Name:Ten butts Jr, 07/16/2025 09:40:00 AM, [address] [place] [address], [address], [place], [id number], Progress Notes * JANIYAAsia DEVON LUKEDOB: (59 yo F)Acc No.[id number]:07/02/2023 EGD/MAC Patient: NACHO DE LEONYL Provider: Elana Polanco MD :1965 A ge:58 Y S ex:Female Date:07/02/2023 Address:[address] [place] [address], [id number] Pcp:Love Sharp N.P Subjective: * Chief Complaints: * 1 . Medina's. * Medical History: Objective: * Vitals: Assessment: * Assessment: 1. B arrett esophagus - K22.70 (Primary) Plan: * Treatment: * Procedure Codes: 4 3239 UPPER GI ENDOSCOPY, BIOPSY * * The named appointment provid er may or may not be the originator of this progress note, and it is not deemed complete until electronically signed by the appointment provider. Sign off status: Pending * Provider: Elana Polanco MD Date: 0 07/02/2023 Generated for Tiffanie kurtz/Katia/Shwethasmitting on: 0 12/29/2024 11:04 AM EDT
--- NOTE | ~2024-12-29 | US_ITS ---
EXAMINATIONS: 1. MM DIAGNOSTIC DIGITAL BREAST TOMOSYNTHESIS, LEFT 2. Targeted ultrasound of the left breast CLINICAL INFORMATION: Callback from screening for left breast focal asymmetry in the lower inner quadrant middle depth. COMPARISON: Comparison made to multiple prior, most recent November 08, 2024, and most remote June 20, 2018. TECHNIQUE: Digital breast tomosynthesis is performed in full field ML 90 degrees along with computer-aided detection (CAD). Synthesized 2D images are generated from the tomosynthesis. Spot compression tomosynthesis images were also obtained. FINDINGS: BREAST COMPOSITION: There are scattered areas of fibroglandular density (ACR BI-RADS breast composition Category b). LEFT BREAST: Previously described focal asymmetry in the lower inner quadrant at approximately 6 cm from the nipple persists on today's images. Local parenchyma appears similar to prior studies as far back as 2018. Targeted ultrasound of the left breast was performed at the location of the mammographic finding. The survey performed throughout the lower inner quadrant did not reveal suspicious sonographic findings. There was an ill-defined area of dense breast tissue surrounding a 4 cm x 0.4 cm x 0.2 cm cyst at 9 o'clock position 7 cm from the nipple. US/US breast LT limited mamm only IMPRESSION: LEFT BREAST: Focal asymmetry in the lower inner quadrant middle depth, without suspicious sonographic correlate. Probably benign. A 6-month follow-up mammogram is recommended. Ultrasound will be also scheduled in case needed. ASSESSMENT: BI-RADS 3 - Probably benign finding(s) - 6 month follow-up suggested RECOMMENDATION: 6 Month F/U Results were provided to the patient at time of visit by the technologist. This patient's information was entered into a reminder system with a target due date for their next mammogram. Electronically signed by: Christiana Paez MD 12/29/2024 12:06 PM EDT
--- OUTSIDE RECORDS SUMMARY | 2024-12-29 11:05 | XMS_ITS | Encounter Summary ---
Author Organization [facility] Address [address] [place] [address] Care Team Providers Care Heel Coverer Machine Operator Name Role Phone Naheed Cross MD Primary Care Provider [phone] Reason for Visit * Reason Comments Unable To Schedule us order placed toda y has high deductible pt cannot pay Encounter Details Date Type Department Care Team ([facility] st Contact Info) Description 03/10/2017 Telephone [facility] Ultrasound [address] [place] [address] Osmani Cruz MD [address] [place] [address] Unable To Schedule (us order placed today [...] might not touch her deductible Thank you [facility] [phone] documented in this encounter Plan of Treatment Not on file documented as of this encounter Visit Diagnoses Not on filedocumented in this encounter Care Teams Heel Coverer Machine Operator Relationship Specialty Start Date End Date Naheed Cross MD [facility] [address] [place] [id number] PCP - General 06/07/03 documented as of this encounter
== END 2024-12-29 10:56 | disposition home or self-care (01) ==
LOC: HO.MAMMO 10:55
PROVIDERS: PCP Nurse Practitioner Family; Visit Provider Nurse Practitioner Family
DX: N64.89 Other specified disorders of breast (principal)
CPT/HCPCS: 76642; 77061; 77065

== ENCOUNTER → 2024-12-29 11:00 | Outpatient (BNV) | payer OTHER, SELFPAY | PROVIDERS: PCP Nurse Practitioner Family; Visit Provider Radiology Body Imaging | DX: R92.8 Other abnormal and inconclusive findings on diagnostic imaging of breast (principal) | CPT/HCPCS: 76642; 77061; 77065 ==